=== PATIENT | female | born 1985 | race Caucasian/White ===

== ENCOUNTER 2016-11-14 12:05 | Emergency (ER) | payer OTHER ==
[~2016-11-14] VITALS: Ht 165.1 cm; Wt 84.1 kg
[2016-11-14 12:12] VITALS: BP 104/63; PULSE 65; RESP 15; O2SAT 100
--- NOTE | 2016-11-14 13:04 | ED.REPORT ---
HPI-Headache Date of Service Nov 14, 2016 ED Provider: Dr. Montejo Pt is a 31 y/o female w/ a hx of chronic migraines, paroxysmal a-fib, presenting to the ED c/o posterior headache onset yesterday. She does get migraines often but this migraine is more intense and similar in character. Her regular migraine medication Rizatriptan provided no relief yesterday. She c/o associated nausea, photophobia, intermittent rapid heart palpitations which she states is not similar to her episodes of a-fib, neck pain, ongoing right-sided chest pain, intermittent right hand numbness, dizziness, lightheadedness. Pt denies recent injury, fever, vomiting, focal weakness, speech change, vision change, SOB. She takes no daily medications. Nursing Notes Stated Complaint: MIGRAINE Chief Complaint: Headache Nursing Notes Reviewed: Yes Allergies: Coded Allergies: crab (Verified Allergy, Severe, NAUSEA, 11/14/16) Penicillins (Verified Allergy, Intermediate, Hives, 11/14/16) Sulfa (Sulfonamide Antibiotics) (Verified Allergy, Intermediate, Hives, ) ibuprofen (Verified Adverse Reaction, Intermediate, cannot take D/T KIDNEY PROBLEMS., 11/14/16) General Time Seen by MD: 13:03 Chief Complaint Headache Hx Obtained From: Patient Arrived By: Walk-in Sudden in Onset?: No Onset Occurred: Yesterday Symptom Duration: Since onset Location: : Occipital bilateral Quality: Painful Severity: Current: Moderate Severity: Maximum: Severe Past Medical History Past Medical History Paroxysmal a-fib - does not take medications for this Migraines Polycystic kidney disease Past Surgical History None reported Smoking History Current Every Day Smoker Social History Alcohol Use: "Social" Drug Use: Denies drug use Ambulatory Status Independent Review of Systems Constitutional: Denies: Chills, Fever Eyes: Reports: Photophobia GI: Reports: Nausea, Denies: Abdominal pain, Diarrhea, Vomiting Musculoskeletal: Reports: Neck pain Neurologic: Reports: Headache, Numbness, Denies: Change LOC, Dizziness, Focal weakness, Lightheaded, Slurred speech, Unable to speak, Vision change Complete sys rev & neg: except as marked. Respiratory: Denies: Non-productive cough, Shortness of breath Cardiovascular: Reports: Chest pain, Palpitations, Denies: Dyspnea on exertion Physical Exam Initial Vital Signs Vital Signs (First) Date Time Temp Pulse Resp B/P Pulse Ox O2 Delivery O2 Flow Rate FiO2 11/14/16 12:12 36.9 65 15 104/63 100 Initial VS: Reviewed, Vital signs normal ENT: Mucous membranes moist, Conjunctiva normal, No scleral icterus Respiratory: Breath sounds normal, Clear to auscultation, No respiratory distress Cardiovascular: Regular rate & rhythm, Heart sounds normal, Intact distal pulses Abdomen / GI: Soft, No distention Extremities: Vascular intact, Neuro intact, No swelling, No tenderness Skin: Warm, Dry, No cyanosis Psychiatric: Mood/affect normal, Behavior normal, Normal thought content General/Constitutional: Awake, Alert, No acute distress, Well appearing, Cooperative, Not toxic appearing Head / Eyes: Atraumatic, Normocephalic, PERRL, EOMI Photophobic Neck: Atraumatic, Supple, No meningismus, Full range of motion Neurologic: Oriented X3, Speech NL, No motor deficits, No sensory deficits, CN II - XII intact, Cerebellar NL, Memory NL Interpretation & Diagnostics Lab Results Interpretation Test 11/14/16 15:11 Re-Eval/Medical Decision Re-Evaluation/Progress #1: Time of Eval: 14:30 Re-Evaluation/Progress Note: She says that her headache was starting to go away and then became much worse. She has not vomited. She is drinking a coffee beverage from a local coffee stand. Re-Evaluation/Progress #2: Time of Eval: 15:37 Re-Evaluation/Progress Note: Pt rechecked. Nausea resolved, MEDINA somewhat better. Informed pt of plan for treatment. Pt understands and agrees with plan for treatment. F/U instructions and RTER warnings given. All questions addressed. Counseled Regarding: Diagnosis, Need for follow-up, When/why to return to ED Discharge & Departure Impression: Primary Impression: Migraine Migraine type: unspecified Status migrainosus presence: without status migrainosus Intractability: not intractable Qualified Code: G43.909 - Migraine, unspecified, not intractable, without status migrainosus Disposition: Home Discharge Condition All VS Reviewed: Yes Condition: Stable Patient Instructions: Migraine Headache (ED) Additional Instructions: No stroke is suspected. I think that these symptoms are all consistent with migraine. Follow-up with your doctor in a few days if the symptoms are not resolved. Go home and sleep in a quiet dark place for a few hours you can. Referrals: Braulio Lazaro MD (PCP) Anna Attestation Portions of this note were transcribed by Noel Arreguin. I, Dr. Montejo personally performed the history, physical exam and medical decision-making; I reviewed and confirmed the accuracy of the information in the transcribed note. Signed by Anna Eugene, 11/14/16 - 1400 copies to: Braulio Lazaro MD, Kirk H MD Nov 14, 2016 13:04 NOEL ARREGUIN Nov 14, 2016 13:31
[2016-11-14] MEDS ORDERED: diphenhydrAMINE 25 mg Capsule PO ONE (13:05)
[2016-11-14 16:04] VITALS: BP 110/59; PULSE 60; RESP 14; O2SAT 97
== END 2016-11-14 16:06 | disposition home or self-care (01) ==
LOC: SED 12:05
DX: G43.909 Migraine, unspecified, not intractable, without status migrainosus (principal); F17.200 Nicotine dependence, unspecified, uncomplicated; Z88.2 Allergy status to sulfonamides; Z88.0 Allergy status to penicillin; Z88.6 Allergy status to analgesic agent